=== PATIENT | female | born 1995 | race Caucasian/White ===

== ENCOUNTER 2020-01-07 18:02 | Emergency (ER) | payer OTHER, SELFPAY ==
--- NOTE | ~2020-01-07 | XR_ITS ---
EXAMINATION: XR chest 1V portable INDICATION: Cough and fever TECHNIQUE: Portable AP chest at 1833 hours COMPARISON: None available FINDINGS: The lungs are free of acute opacities. There is no pleural effusion or pneumothorax. The ca rdiomediastinal silhouette is normal. The visualized bones and soft tissues are unremarkable. IMPRESSION: 1. No acute cardiopulmonary abnormality. Reviewed, dictated and finalized at location A.
[2020-01-07 18:09] VITALS: BP 140/104; PULSE 90; RESP 20; TEMP 37.1; O2SAT 100
--- NOTE | 2020-01-07 18:19 | ECG_ITS ---
Measurements Intervals [place] Rate: 108 P: 54 [place]: 152 QRS: 91 QRSD: 87 T: -13 QT: 327 QTc: 440 Interpretive Statements SINUS TACHYCARDIA RIGHT AXIS DEVIATION ST-T WAVE ABNORMALITY IN ANTERSEPTAL LEADS- CONSIDER ISCHEMIA BASELINE WANDER- I, II, AVR ABNORMAL ECG Electronically Signed On 01-08-2020 7:45:58 CDT by Nakul Villalobos D.O.
[2020-01-07 19:15] LABS: Basophils Percent Auto 0.3 % (0.2-1.2); Eosinophils Percent Auto 0.5 % (0-4.4); Hematocrit 42.3 % (37.0-47.0); Hemoglobin 13.5 g/dL (12.0-15.0); Immature Granulocyte Absolute 0.02 K/mm3 (0.00-0.031); Immature Granulocyte Percent A 0.3 % (0-0.5); Lymphocytes Absolute Auto 1.55 K/mm3 (0.9-3.2); Lymphocytes Percent Auto 24.1 % (18.3-44.2); Mean Corpuscular HGB Conc 31.9 g/dl (32-36); Mean Corpuscular Hemoglobin 25.2 pg (26-34); Mean Corpuscular Volume 79.1 fl (80-100); Mean Platelet Volume 9.9 fl (7.4-10.4); Monocytes Absolute Auto 0.7 K/mm3 (0.1-0.6); Monocytes Percent Auto 10.1 % (2.6-8.5); Neutrophils Absolute Auto 4.2 K/mm3 (1.3-6.7); Neutrophils Percent Auto 64.7 % (45.5-73.1); Platelet Count Result 317 k/mm3 (150-375); Red Blood Count 5.35 M/mm3 (4.2-5.4); Red Cell Distribution Width 15.4 % (11.5-14.5); White Blood Count 6.4 K/mm3 (4.5-10.0)
[2020-01-07 19:25] LABS: INR 1.1; Prothrombin Time 13.6 Seconds (11.1-14.7)
[2020-01-07 19:26] LABS: Partial Thromboplastin Time 33.2 SECONDS (22.3-36.8)
[2020-01-07 19:28] LABS: Lactic Acid Reflex 0.9 mmol/L (0.7-2.1)
--- NOTE | 2020-01-07 19:28 | ED.FEVER ---
HPI - Fever General Chief Complaint: Fever <Jose Aleman PA-C - Last Filed: 01/07/20 19:56> Stated Complaint: Fever, cough, chest discomfort <Jose Aleman PA-C - Last Filed: 01/07/20 19:56> Time Seen by Provider: 01/07/20 18:11 <GLADYS Rashid Last Filed: 01/07/20 19:56> Source: patient and family <GLADYS Rashid Last Filed: 01/07/20 19:56> Mode of arrival: ambulatory <Jose Aleman PA-C - Last Filed: 01/07/20 19:56> Limitations: no limitations <Jose Aleman PA-C - Last Filed: 01/07/20 19:56> History of Present Illness HPI Narrative: Patient is a 24-year-old female who presents to emergency department for evaluation with family for fever chills cough runny nose congestion for the last week. Patient was placed on Bactrim by primary care but has continued to have cough. Patient on arrival notes she has had some loose stools but denies vomiting. Family notes subjective fever. Patient otherwise resting comfortably in the room upon arrival in no distress. Patient with history of autism <Jose Aleman PA-C - Last Filed: 01/07/20 19:56> Related Data Home Medications: Home Medications Medication Instructions Recorded Confirmed fluticasone propionate [Flonase INTRANASAL 08/31/19 Allergy Relief] <Jose Aleman PA-C - Last Filed: 01/07/20 19:56> Allergies/Adverse Reactions: Allergies Allergy/AdvReac Type Severity Reaction Status Date / Time No Known Allergies Allergy Verified 08/31/19 10:28 <Jose Aleman PA-C - Last Filed: 01/07/20 19:56> Review of Systems Review of Systems: All systems reviewed & are unremarkable except as noted in HPI and below <Jose Aleman PA-C - Last Filed: 01/07/20 19:56> [facility] Social History Social History: Social History Smoking status: Never smoker Alcohol intake: never Substance use: never <GLADYS Rashid Last Filed: 01/07/20 19:56> Exam Narrative: Exam Narrative: GENERAL: Well-appearing, well-nourished, and in no acute distress. HEAD: Normocephalic, atraumatic. EYES: PERRLA and EOMI. ENT: Nares clear, no rhinorrhea or epistaxis. Mucous membranes moist. Oropharynx with erythema and without tonsillar hypertrophy exudate or other lesions. Bilateral TMs pearly howell nonbulging. Uvula midline no trismus or drooling NECK: Supple. No adenopathy or masses. No carotid bruits or JVD CHEST: Clear to auscultation. No respiratory distress. No wheezes rales or rhonchi HEART: Regular rate and rhythm. No murmur heard. Normal peripheral pulses. ABDOMEN: Soft, nontender, nondistended EXTREMITIES: Normal range of motion. No edema. SKIN: Warm, dry, no rash. NEURO: No focal deficits. Alert and oriented x3. Cranial nerves II through XII grossly intact PSYCH: Normal mood and affect. <Jose Aleman PA-C - Last Filed: 01/07/20 19:56> Course FLOOR LAYER HELPER/PA Physician Supervision [id number] time with the patient at 2037. Discussed the case with Anshul Garcia, and will assume care, since Anshul went home. I saw the patient and her mother, and she feels fine, and will probably be discharged home for self-care. <Karen Verdugo MD - Last Filed: 01/07/20 22:12> Reevaluation(s) Reevaluation #1: [id number] with the patient and her mother at 2035. The patient has had fever at home and is on antibiotic. All of her tests are looking good, and she is feeling fine. Still waiting for the influenza swab to come back. The mom asked if, no source is found, she would change the antibiotic. I explained that it is probably viral, and might be the COVID, and no antibiotics will be helpful. <Karen Verdugo MD - Last Filed: 01/07/20 22:12> Date: 01/07/20 <Karen Verdugo MD - Last Filed: 01/07/20 22:12> Time: 20:37 <Karen Verdugo MD - Last Filed: 01/07/20 22:12> Vital Signs Vital signs: Vital Signs
[2020-01-07 19:34] LABS: Alanine Aminotransferase 12 U/L (4-35); Alkaline Phosphatase 89 U/L (38-126); Aspartate Amino Transferase 22 U/L (14-36); Bilirubin,Total 0.7 mg/dL (0.2-1.3); Blood Urea Nitrogen 15 mg/dL (7-17); Calcium 9.2 mg/dL (8.4-10.2); Carbon Dioxide 21 mmol/L (22-30); Chloride 99 mmol/L (98-107); Estimated CRCL calculation 104 ml/min; Estimated Glomerular Filt Rate > 60; Glucose 90 mg/dL (65-105); Potassium 3.4 mmol/L (3.4-5.0); Sodium 137 mmol/L (137-145)
[2020-01-07] MEDS: SODIUM CHLORIDE 0.9% IV 1,000 ML 999 ML IV CONT (19:35)
[2020-01-07 19:36] VITALS: BP 128/89; PULSE 120; RESP 20; O2SAT 99
[2020-01-07 19:53] LABS: CRP 0.7 mg/dL (<1.0)
[2020-01-07 20:24] LABS: Add Urine Microscopic? YES
[2020-01-07 20:25] LABS: Appearance Urine Clear (Clear); Blood Urine Negative (Negative); Color Urine Yellow (Yellow); Glucose Urine UA Negative (Negative); Ketones Urine 3+ mg/dL (Negative); Nitrate Urine Negative (Negative); Protein Urine 1+ mg/dL (Negative); Specific Grav Ur 1.032 (1.001-1.035)
[2020-01-07 20:26] LABS: Bilirubin Urine Negative (Negative); Leukocyte Esterase Ur Negative LEU/UL (Negative); Urobilinogen Urine 0.2 mg/dL (<2.0)
[2020-01-07 20:28] LABS: RBC Urine 0-2 /hpf (0-2)
[2020-01-07 20:29] LABS: Bacteria Urine None seen /hpf; Squamous Epithelial Cell Urine Few /hpf (Few); WBC Urine 0-3 /hpf (0-3)
== END 2020-01-07 21:07 | disposition home or self-care (01) ==
PROVIDERS: Emergency Medicine Emergency Medical Services; Emergency Provider Emergency Medicine
DX: J06.9 Acute upper respiratory infection, unspecified (principal); R00.0 Tachycardia, unspecified; R94.31 Abnormal electrocardiogram [ECG] [EKG]
CPT/HCPCS: 36415; 71045; 80053; 81001; 83605; 85025; 85610; 85730; 86140; 87040; 87081; 87804; 87880; 93005; 96365; 96366; 99284; J0131; J7030

== ENCOUNTER 2020-04-05 17:18 | Emergency (ER) | payer OTHER, SELFPAY ==
[2020-04-05 17:22] VITALS: BP 135/83; PULSE 107; RESP 18; TEMP 36.6; O2SAT 100
--- NOTE | 2020-04-05 17:25 | ED.GENADULT ---
HPI - General Adult General Chief complaint: Ear Stated complaint: sore throat, left ear pain Time Seen by Provider: 04/05/20 17:25 Source: patient Mode of arrival: ambulatory Limitations: no limitations and physical limitation (History of autism) History of Present Illness HPI narrative: 24-year-old female patient presents to the [facility] with complaints of left ear pain and sore throat pain for the past 3 days. Denies any fevers. Denies any loss of taste or smell. Denies any chest pain, shortness of breath, abdominal pain, nausea, vomiting or diarrhea. Patient states that she has been using her Flonase at home as well as taking some [id number] sinus medication for her symptoms. Patient states that she is concerned about possibly having strep or an ear infection. Denies any recent swimming. Related Data Home Medications Medication Instructions Recorded Confirmed fluticasone propionate [Flonase INTRANASAL 08/31/19 Allergy Relief] Allergies Allergy/AdvReac Type Severity Reaction Status Date / Time No Known Allergies Allergy Verified 08/31/19 10:28 Review of Systems Review of Systems: Narrative: CONSTITUTIONAL: Denies fever, chills, or sweats. EYES: Denies visual changes, redness, or discharge. ENT: Denies rhinorrhea, congestion, positive sore throat, positive left otalgia. CARDIOVASCULAR: Denies chest pain, palpitations, or edema. RESPIRATORY: Denies cough or dyspnea. GASTROINTESTINAL: Denies abdominal pain, nausea, vomiting, or diarrhea. GENITOURINARY: Denies dysuria or hematuria. SKIN: Denies rash or itching. MUSCULOSKELETAL: Denies back pain, joint pain, or myalgia. NEUROLOGIC: Denies headache, numbness, or weakness. PSYCHIATRIC: Denies anxiety or depression. PMFSH Social History Social History Smoking status: Never smoker Alcohol intake: never Substance use: never Gender identity (if verbalized by the patient): Female Comments At the time of my signature I agree with nursing past medical history, surgical, social, and family history. There is no relevant family history pertinent to the presenting complaint. Exam Narrative: Exam Narrative: GENERAL: Well-appearing, well-nourished, and in no acute distress. HEAD: Normocephalic, atraumatic. No tenderness noted to frontal maxillary sinuses on palpation EYES: PERRLA and EOMI. ENT: Nares clear, no rhinorrhea or epistaxis. Mucous membranes moist. Posterior pharynx with 2+ tonsil enlargement, slight erythema. No exudates or lesions present. Bilateral TMs are clear with no erythema or foreign bodies to the canal. NECK: Supple. No lymphadenopathy CHEST: Clear to auscultation. No respiratory distress. HEART: Regular rate and rhythm. No murmur heard. Normal peripheral pulses. ABDOMEN: Soft, nontender, nondistended, normal active bowel sounds. EXTREMITIES: Normal range of motion. No edema. SKIN: Warm, dry, no rash. NEURO: No focal deficits. Alert and oriented x3. Course Reevaluation(s) Reevaluation #1: Reevaluated patient and mother. Discussed with them that patient strep test is negative today. Discussed them I went ahead and prescribe patient some Claritin to help with the sinus drainage symptoms that she needs to continue doing her Flonase and she needs to follow-up with her primary doctor in the next 5 to 7 days as needed. They verbalized understanding of this denies any other questions or concerns at this time. Date: 04/05/20 Time: 18:05 Vital Signs Vital signs: Vital Signs Temperature 36.6 C 04/05/20 17:22 Pulse Rate 107 H 04/05/20 17:22 Respiratory Rate 18 04/05/20 17:22 Blood Pressure 135/83 04/05/20 17:22 Pulse Oximetry 100 04/05/20 17:22 Temperature 36.6 C 04/05/20 17:22 Pulse Rate 107 H 04/05/20 17:22 Respiratory Rate 18 04/05/20 17:22 Blood Pressure 135/83 04/05/20 17:22 Pulse Oximetry 100 04/05/20 17:22 Vital signs reviewed. The patien
== END 2020-04-05 18:13 | disposition home or self-care (01) ==
PROVIDERS: Emergency Provider Nurse Practitioner Family
DX: J02.9 Acute pharyngitis, unspecified (principal); F84.0 Autistic disorder; R03.0 Elevated blood-pressure reading, without diagnosis of hypertension
CPT/HCPCS: 87880; 99283

== ENCOUNTER 2020-08-10 11:02 | Emergency (ER) | payer OTHER, SELFPAY ==
--- NOTE | ~2020-08-10 | XR_ITS ---
EXAMINATION: XR chest 1V portable EXAM DATE: 08/10/2020 11:55 INDICATION: Cough, chest pain, symptoms one week. TECHNIQUE: Portable AP frontal chest x-ray was obtained. Comparison is made to prior examination from 01/07/2020. FINDINGS: Some hyperinflation. The lungs are clear. There are no pleural effusions. The cardiomedia stinal silhouette is within normal limits. There is no pneumothorax suspected. The bones and soft t issues are unremarkable. IMPRESSION: Hyperinflation unchanged. Reviewed, dictated and finalized at location A. ER BOILERMAKER IMPRESSION: Hyperinflation unchanged.
[2020-08-10 11:11] VITALS: BP 135/95; PULSE 124; RESP 18; TEMP 36.3; O2SAT 99
--- NOTE | 2020-08-10 11:40 | ED.GENADULT ---
HPI - General Adult General Chief complaint: Chest Pain Stated complaint: vomiting, congestion, head/nose pain Time Seen by Provider: 08/10/20 11:14 Source: patient Mode of arrival: ambulatory Limitations: no limitations History of Present Illness HPI narrative: Patient is a 24-year-old female who presents with congestion rhinorrhea headache nonproductive cough that began this morning denies sick contacts has not taken anything for her symptoms presents per private vehicle in no distress does note feeling anxious with history of anxiety patient denies vomiting diarrhea chest pain or shortness of breath and on arrival is in no distress Related Data Home Medications Medication Instructions Recorded Confirmed fluticasone propionate [Flonase INTRANASAL 08/31/19 Allergy Relief] Allergies Allergy/AdvReac Type Severity Reaction Status Date / Time No Known Allergies Allergy Verified 08/10/20 11:14 Review of Systems Review of Systems: All systems reviewed & are unremarkable except as noted in HPI and below PMFSH Social History Social History Smoking status: Never smoker Alcohol intake: never Substance use: never Gender identity (if verbalized by the patient): Female Exam Narrative: Exam Narrative: GENERAL: Well-appearing, well-nourished, and in no acute distress. HEAD: Normocephalic, atraumatic. EYES: PERRLA and EOMI. ENT: Nares clear, no rhinorrhea or epistaxis. Mucous membranes moist. CHEST: Clear to auscultation. No respiratory distress. No wheezes rales or rhonchi HEART: Tachycardic rate and regular rhythm. No murmur heard. Normal peripheral pulses. EXTREMITIES: Normal range of motion. No edema. SKIN: Warm, dry, no rash. NEURO: No focal deficits. Alert and oriented x3. PSYCH: Normal mood and affect. Course Vital Signs Vital signs: Vital Signs Temperature 97.4 F L 08/10/20 11:11 Pulse Rate 124 H 08/10/20 11:11 Respiratory Rate 18 08/10/20 11:11 Blood Pressure 135/95 H 08/10/20 11:11 Pulse Oximetry 99 08/10/20 11:11 Temperature 97.4 F L 08/10/20 11:11 Pulse Rate 124 H 08/10/20 11:11 Respiratory Rate 18 08/10/20 11:11 Blood Pressure 135/95 H 08/10/20 11:11 Pulse Oximetry 99 08/10/20 11:11 Medical Decision Making Vital Signs Vital Signs: Vital Signs Temperature 97.4 F L 08/10/20 11:11 Pulse Rate 124 H 08/10/20 11:11 Respiratory Rate 18 08/10/20 11:11 Blood Pressure 135/95 H 08/10/20 11:11 Pulse Oximetry 99 08/10/20 11:11 Temperature 97.4 F L 08/10/20 11:11 Pulse Rate 124 H 08/10/20 11:11 Respiratory Rate 18 08/10/20 11:11 Blood Pressure 135/95 H 08/10/20 11:11 Pulse Oximetry 99 08/10/20 11:11 Lab Data Labs: Lab Results 08/10/20 Range/Units 11:24 SARS-CoV-2 RNA (RT-PCR) Pending Discharge Plan Discharge Prescriptions: No Action loratadine [Claritin] 10 mg tablet 10 mg PO DAILY Qty: 30 RF: 0 fluticasone propionate [Flonase Allergy Relief] 50 mcg/actuation [place],Suspension INTRANASAL RF: 0
--- NOTE | 2020-08-10 11:57 | ED.CHESTPAIN ---
HPI - Chest Pain General Chief Complaint: Chest Pain Stated Complaint: vomiting, congestion, head/nose pain Time Seen by Provider: 08/10/20 11:14 Source: patient Mode of arrival: ambulatory Limitations: no limitations History of Present Illness HPI narrative: Patient is a 24-year-old female who presents with congestion rhinorrhea headache productive cough that began this morning denies shortness of breath diarrhea vomiting or tobacco abuse or history of lung disease denies sick contacts. . Patient is not been seen for this complaint nor she taken anything for her symptoms. On arrival patient in the room in no distress does not appear uncomfortable toxic or sick Related Data Home Medications Medication Instructions Recorded Confirmed fluticasone propionate [Flonase INTRANASAL 08/31/19 Allergy Relief] Allergies Allergy/AdvReac Type Severity Reaction Status Date / Time No Known Allergies Allergy Verified 08/10/20 11:14 Review of Systems Review of Systems: All systems reviewed & are unremarkable except as noted in HPI and below PMFSH Social History Social History Smoking status: Never smoker Alcohol intake: never Substance use: never Gender identity (if verbalized by the patient): Female Exam Narrative: Exam Narrative: GENERAL: Well-appearing, well-nourished, and in no acute distress. HEAD: Normocephalic, atraumatic. EYES: PERRLA and EOMI. ENT: Nares clear, no rhinorrhea or epistaxis. Mucous membranes moist. CHEST: Clear to auscultation. No respiratory distress. No wheezes rales or rhonchi HEART: Tachycardic rate and regular rhythm. No murmur heard. Normal peripheral pulses. ABDOMEN: Soft, nontender, nondistended EXTREMITIES: Normal range of motion. No edema. SKIN: Warm, dry, no rash. NEURO: No focal deficits. Alert and oriented x3. PSYCH: Normal mood and affect. Course Course Emergency Course: Patient in the room aware of case findings treatment plan diagnosis will be discharged home Covid testing pending with no pneumonia seen on exam afebrile nontoxic-appearing no distress felt appropriate for discharge home agreeing to return if symptoms worsen Vital Signs Vital signs: Vital Signs Temperature 97.4 F L 08/10/20 11:11 Pulse Rate 124 H 08/10/20 11:11 Respiratory Rate 18 08/10/20 11:11 Blood Pressure 135/95 H 08/10/20 11:11 Pulse Oximetry 99 08/10/20 11:11 Temperature 97.4 F L 08/10/20 11:11 Pulse Rate 124 H 08/10/20 11:11 Respiratory Rate 18 08/10/20 11:11 Blood Pressure 135/95 H 08/10/20 11:11 Pulse Oximetry 99 08/10/20 11:11 MDM - Chest Pain MDM Narrative Medical decision making narrative: ABCs stable at this time patient is slightly anxious likely accounting for tachycardia no pneumonia or other concerning findings on exam will be discharged home with self quarantine will use her primary care to get her results provided with reasons to return will be treated symptomatically Lab Data Labs: Lab Results 08/10/20 Range/Units 11:24 SARS-CoV-2 RNA (RT-PCR) Pending Discharge Plan Discharge Clinical Impression: Acute upper respiratory infection Patient Disposition: Home, Self-Care Condition: Stable Instructions: Antibiotic Form, COVID-19 (Coronavirus Disease 2019) (ED) Additional Instructions: Follow up with your primary care provider within 1 to 2 days to set up for reevaluation and get your COVID-19 results. Go to ER for shortness of breath, difficulty breathing, chest pain, fever/chills, weakness, nauseau/vomitting, etc. or any other concerns. Stay well-hydrated Self quarantine until you have received your COVID-19 results and been advised otherwise by primary care Take any prescribed medications as directed. Follow patient education sheets If you do not have a drug allergy to tylenol or motrin and can tolerate it then take tylenol or motrin as needed for discomfort/pain
[2020-08-10 13:15] VITALS: BP 135/82; PULSE 100; RESP 16; O2SAT 100
[2020-08-10 21:00] LABS: SARS-CoV-2 RNA PCR Negative
== END 2020-08-10 13:15 | disposition home or self-care (01) ==
PROVIDERS: Emergency Medicine Emergency Medical Services; Emergency Provider Emergency Medicine
DX: J06.9 Acute upper respiratory infection, unspecified (principal); Z20.828 Contact with and (suspected) exposure to other viral communicable diseases
CPT/HCPCS: 71045; 87635; 99283; C9803; U0003

== ENCOUNTER 2021-02-03 14:53 | Emergency (ER) | payer OTHER, SELFPAY ==
[2021-02-03 15:03] VITALS: BP 148/103; PULSE 100; RESP 18; TEMP 36.6; O2SAT 100
--- NOTE | 2021-02-03 15:57 | ED.EAR ---
HPI - Ear Problem General Chief complaint: Ear Stated complaint: ear has been draining Time Seen by Provider: 02/03/21 15:56 Source: patient Mode of arrival: ambulatory Limitations: no limitations History of Present Illness HPI Narrative: This is a 25-year-old female that presents the emergency department for left ear discharge noted over the last couple of days. Associated with some pain in the ear and nasal congestion. Denies fever cough. Related Data Allergies Allergy/AdvReac Type Severity Reaction Status Date / Time No Known Allergies Allergy Verified 02/03/21 15:02 Review of Systems Review of Systems: Narrative: CONSTITUTIONAL: Denies fever ENT: Reports congestion and otalgia. Denies sore throat All systems reviewed & are unremarkable except as noted in HPI and below PMFSH Social History Social History Smoking status: Never smoker Alcohol intake: never Substance use: never Gender identity (if verbalized by the patient): Female Exam Narrative: Exam Narrative: GENERAL: Well-appearing, well-nourished, and in no acute distress. HEAD: Normocephalic, atraumatic. EYES: EOMI. ENT: Nares clear, no rhinorrhea or epistaxis. Mucous membranes moist. Oropharynx without tonsillar hypertrophy exudate or other lesions. Bilateral external auditory canals are normal. Bilateral TMs pearly howell non-bulging NECK: Supple. No adenopathy or masses. CHEST: Clear to auscultation. No respiratory distress. No wheezes rales or rhonchi HEART: Regular rate and rhythm. No murmur heard. Normal peripheral pulses. EXTREMITIES: Normal range of motion. No edema. SKIN: Warm, dry, no rash. NEURO: No focal deficits. Alert and oriented x3. PSYCH: Normal mood and affect Course Vital Signs Vital signs: Vital Signs Temperature 97.9 F 02/03/21 15:03 Pulse Rate 100 02/03/21 15:03 Respiratory Rate 18 02/03/21 15:03 Blood Pressure 148/103 H 02/03/21 15:03 Pulse Oximetry 100 02/03/21 15:03 Temperature 97.9 F 02/03/21 15:03 Pulse Rate 100 02/03/21 15:03 Respiratory Rate 18 02/03/21 15:03 Blood Pressure 148/103 H 02/03/21 15:03 Pulse Oximetry 100 02/03/21 15:03 Medical Decision Making MDM Narrative Medical decision making narrative: Patient presents to the emergency department for left ear discomfort and drainage from the left ear. She is afebrile and nontoxic-appearing. Bilateral external auditory canals and TMs are normal. She was instructed to continue her allergy medications and take [id number] pain medication as needed. She is to follow-up with her primary care doctor. She was given warnings to return to the ER Vital Signs Vital Signs: Vital Signs Temperature 97.9 F 02/03/21 15:03 Pulse Rate 100 02/03/21 15:03 Respiratory Rate 18 02/03/21 15:03 Blood Pressure 148/103 H 02/03/21 15:03 Pulse Oximetry 100 02/03/21 15:03 Temperature 97.9 F 02/03/21 15:03 Pulse Rate 100 02/03/21 15:03 Respiratory Rate 18 02/03/21 15:03 Blood Pressure 148/103 H 02/03/21 15:03 Pulse Oximetry 100 02/03/21 15:03 Critical Care Time Critical Care Time Critical Care Time: No Discharge Plan Discharge Clinical Impression: Otalgia of left ear Patient Disposition: Home, Self-Care Condition: Stable Additional Instructions: Return to the emergency department if you experience fever, redness and swelling of your ear, worsening pain, or any other symptoms that are concerning to you Continue your home medications as prescribed. Tylenol or ibuprofen as needed for discomfort Follow-up with your primary care doctor Prescriptions: No Action loratadine [Claritin] 10 mg tablet 10 mg PO DAILY Qty: 30 RF: 0 fluticasone propionate [Flonase Allergy Relief] 50 mcg/actuation spray,suspension 2 spray intranasal DAILY Qty: 9.9 RF: 0 Follow-up/Referrals: PHYSICIAN,FOREIGN TRADE TEACHER [Primary Care Provider] -
== END 2021-02-03 16:25 | disposition home or self-care (01) ==
PROVIDERS: Emergency Provider Emergency Medicine
DX: H92.02 Otalgia, left ear (principal)
CPT/HCPCS: 99281

== ENCOUNTER 2021-03-17 11:21 | Emergency (ER) | payer OTHER, SELFPAY ==
[2021-03-17 11:31] VITALS: BP 133/91; PULSE 92; RESP 16; TEMP 36.6; O2SAT 99
[2021-03-17 11:51] LABS: Add Urine Microscopic? YES; Appearance Urine Cloudy (Clear); Bacteria Urine Trace /hpf; Bilirubin Urine Negative (Negative); Blood Urine Negative (Negative); Color Urine Yellow (Yellow); Glucose Urine UA Negative (Negative); Ketones Urine Negative (Negative); Leukocyte Esterase Ur Negative LEU/UL (Negative); Mucus Urine Heavy /lpf; Nitrate Urine Negative (Negative); Protein Urine 1+ mg/dL (Negative); RBC Urine 0-2 /hpf (0-2); Specific Grav Ur 1.026 (1.001-1.035); Squamous Epithelial Cell Urine Many /hpf (Few); WBC Urine 0-3 /hpf
--- NOTE | 2021-03-17 13:15 | ED.FEMALEGU ---
HPI - Female Genitourinary General Chief complaint: Urogenital-Female Stated complaint: UTI Time Seen by Provider: 03/17/21 12:34 Source: patient Mode of arrival: ambulatory Limitations: no limitations History of Present Illness HPI Narrative: This is a 25-year-old female that presents the emergency department for urinary discomfort x2 days. Reports burning and frequency. Denies fever, abdominal pain, vomiting, hematuria, or abdominal lesions or discharge. Related Data Allergies Allergy/AdvReac Type Severity Reaction Status Date / Time No Known Allergies Allergy Verified 02/03/21 15:02 Review of Systems Review of Systems: Narrative: CONSTITUTIONAL: Denies fever GASTROINTESTINAL: Denies abdominal pain, nausea, vomiting GENITOURINARY: Reports dysuria. Denies hematuria. SKIN: Denies rash or itching. All systems reviewed & are unremarkable except as noted in HPI and below PMFSH Social History Social History Smoking status: Never smoker Alcohol intake: never Substance use: never Gender identity (if verbalized by the patient): Female Exam Narrative: Exam Narrative: GENERAL: Well-appearing, well-nourished, and in no acute distress. HEAD: Normocephalic, atraumatic. EYES: EOMI. CHEST: Clear to auscultation. No respiratory distress. No wheezes rales or rhonchi HEART: Regular rate and rhythm. No murmur heard. Normal peripheral pulses. ABDOMEN: Soft, nontender, nondistended, normal active bowel sounds. EXTREMITIES: Normal range of motion. No edema. SKIN: Warm, dry, no rash. NEURO: No focal deficits. Alert and oriented x3. PSYCH: Normal mood and affect PELVIC: Mild vulvovaginal irritation and white discharge. No CMT Course Vital Signs Vital signs: Vital Signs Temperature 97.8 F 03/17/21 11:31 Pulse Rate 92 03/17/21 11:31 Respiratory Rate 16 03/17/21 11:31 Blood Pressure 133/91 H 03/17/21 11:31 Pulse Oximetry 99 03/17/21 11:31 Temperature 97.5 F L 03/17/21 13:59 Pulse Rate 79 03/17/21 13:59 Respiratory Rate 18 03/17/21 13:59 Blood Pressure 138/98 H 03/17/21 13:59 Pulse Oximetry 100 03/17/21 13:59 MDM - Female Genitourinary MDM Narrative Medical decision making narrative: Patient presents emergency department for vaginal irritation and dysuria. She is afebrile and nontoxic-appearing. Denies any fever, abdominal pain, or vomiting. UA is without evidence of infection. Trichomonas is negative. Chlamydia, gonorrhea and genital culture were sent. Bedside test is negative. Patient does not report any concern for STDs. Would like to follow-up for results. She did have some evidence of yeast infection on exam so will be treated for this. She is to follow-up with her primary doctor. She was given warnings to return to the ER Lab Data Attestation: I reviewed the patient's lab results. Labs: Lab Results 03/17/21 03/17/21 03/17/21 Range/Units 11:36 14:23 14:23 Urine Color Yellow (Yellow) Urine Appearance Cloudy H (Clear) Urine pH 6.0 (5.0-9.0) Ur Specific [place] 1.026 (1.001-1.035) Urine Protein 1+ H (Negative) mg/dL Urine Glucose (UA) Negative (Negative) mg/dL Urine Ketones Negative (Negative) mg/dL Ur Blood (Man) Negative (Negative) Urine Nitrate Negative (Negative) Urine Bilirubin Negative (Negative) Urine Urobilinogen 2.0 H (<2.0) mg/dL Leukocyte Esterase Rfl Negative (Negative) GRIFFIN/UL Urine RBC 0-2 (0-2) /hpf Urine WBC 0-3 /hpf Ur Squamous Epith Cells Many H (Few) /hpf Urine Bacteria Trace /hpf Urine Mucus Heavy H /lpf C.trachomatis RNA (TMA) Pending N.gonorrhoeae RNA (TMA) Pending Trichomonas Direct ID Negative (Negative) UCG Bedside Result Negative Reference Range: Negative Critical Care Time Critical Care Time Critical Ca
[2021-03-17 13:59] VITALS: BP 138/98; PULSE 79; RESP 18; TEMP 36.4; O2SAT 100
[2021-03-17 16:30] VITALS: BP 156/91; PULSE 80; RESP 18; TEMP 36.5; O2SAT 99
[2021-03-17] MEDS: FLUCONAZOLE 150 MG TABLET PO (16:37)
== END 2021-03-17 16:30 | disposition home or self-care (01) ==
PROVIDERS: Physician Assistant; Emergency Provider Emergency Medicine
DX: B37.3 Candidiasis of vulva and vagina (principal)
CPT/HCPCS: 81001; 81025; 87070; 87491; 87591; 87808; 99284; A9270

== ENCOUNTER 2021-05-24 11:53 | Emergency (ER) | payer OTHER, SELFPAY ==
--- NOTE | ~2021-05-24 | XR_ITS ---
EXAMINATION: XR chest 1V portable INDICATION: Weakness TECHNIQUE: Portable AP chest at 1232 hours COMPARISON: 08/10/2020 FINDINGS: The lungs are free of acute opacities. There is no pleural effusion or pneumothorax. The ca rdiomediastinal silhouette is normal. The visualized osseous structures are unremarkable. IMPRESSION: 1. No acute cardiopulmonary abnormality. Reviewed, dictated and finalized at location A.
[2021-05-24 12:07] VITALS: BP 149/90; PULSE 133; RESP 16; TEMP 36.8; O2SAT 100
--- NOTE | 2021-05-24 12:24 | ECG_ITS ---
Measurements Intervals [place] Rate: 124 P: 59 [place]: 159 QRS: 99 QRSD: 82 T: -6 QT: 336 QTc: 484 Interpretive Statements SINUS TACHYCARDIA RIGHT AXIS DEVIATION BORDERLINE ST-T WAVE ABNORMALITY- ANTEROLAT/INF LEADS BASELINE ARTIFACT- I, II, III, AVR, AVL ABNORMAL ECG Electronically Signed On 05-24-2021 13:02:46 CDT by Nakul Villalobos D.O.
--- NOTE | 2021-05-24 12:49 | ED.GENADULT ---
HPI - General Adult General Chief complaint: Unspecified Stated complaint: Vomiting/iarrhea/Ear Pain Time Seen by Provider: 05/24/21 12:04 Source: patient and RN notes reviewed Mode of arrival: ambulatory Limitations: no limitations History of Present Illness HPI narrative: This is a 25 year old female who presents for evaluation of URI symptoms with vomiting and diarrhea. Patient reports 1 week ago she developed what seemed to be a sinus infection. She reports bilateral ear pain, sinus congestion, nasal discharge with green sputum. She also reports mild cough but denies chest pain or shortness of breath. She also reports nausea, vomiting and diarrhea. She has been taking flonase and claritin for her symptoms. Related Data Allergies Allergy/AdvReac Type Severity Reaction Status Date / Time No Known Allergies Allergy Verified 05/24/21 12:12 Review of Systems Review of Systems: All systems reviewed & are unremarkable except as noted in HPI and below Constitutional: Constitutional: Denies chills and Denies fever(s) Eyes: Eyes: Denies blurry vision ENT: Reports otalgia, Denies headache(s), Reports nasal congestion, Reports nasal discharge, Reports sinus pressure and Denies sore throat Cardiovascular: Cardiovascular: Denies chest pain at rest Respiratory: Respiratory: Reports cough and Denies dyspnea Gastrointestinal: Gastrointestinal: Denies abdominal pain, Reports diarrhea, Reports nausea and Reports vomiting PMFSH Past Medical History Medical History (Updated 05/24/21 @ 15:22 by Ashley Ibarra MD) Autism Surgical History Surgical History (Updated 05/24/21 @ 12:49 by Ashley Ibarra MD) No pertinent past surgical history Social History Social History Smoking status: Never smoker Alcohol intake: never Substance use: never Gender identity (if verbalized by the patient): Female Exam Narrative: GENERAL: Well-appearing, well-nourished, and in no acute distress. HEAD: Normocephalic, atraumatic EYES: PERRLA and EOMI, conjunctiva clear without discharge EARS: TM's clear bilaterally without erythema or dullness NOSE: Nares clear, no rhinorrhea or epistaxis THROAT:Mucous membranes moist, Oropharynx normal without erythema, exudate, peritonsillar swelling or fluctuance NECK: Supple, without lymphadenopathy or mass RESPIRATORY: No respiratory distress, Airway patent, Respirations non-labored, Clear to auscultation without rales, rhonchi or wheeze HEART: Regular rate and rhythm. No murmur heard. Normal peripheral pulses. ABDOMEN: Soft, nontender, nondistended, normal active bowel sounds. No masses. No rebound or guarding, No organomegaly. EXTREMITIES: No edema, normal strength with full range of motion. SKIN: Warm, dry, normal color without rash NEURO: Alert and oriented x3. CN 2-12 grossly intact. No focal deficits. PSYCH: Normal mood and affect. Course Reevaluation(s) Reevaluation #1: PAtient and mother have no complaints. I D iscussed she was found to be positive for covid. She was also given potassium supplementation . She has no more vomiting. They deny having any other questions or concerns. Date: 05/24/21 Time: 15:11 Vital Signs Vital signs: Vital Signs Temperature 98.2 F 05/24/21 12:07 Pulse Rate 133 H 05/24/21 12:07 Respiratory Rate 16 05/24/21 12:07 Blood Pressure 149/90 H 05/24/21 12:07 Pulse Oximetry 100 05/24/21 12:07 Temperature 98.2 F 05/24/21 12:07 Pulse Rate 94 05/24/21 14:33 Respiratory Rate 18 05/24/21 14:33 Blood Pressure 147/98 H 05/24/21 14:33 Pulse Oximetry 100 05/24/21 14:33 Medical Decision Making Vital Signs Vital Signs: Vital Signs Temperature 98.2 F 05/24/21 12:07 Pulse Rate 133 H 05/24/21 12:07 Respiratory Rate 16 05/24/21 12:07 Blood Pressure 149/90 H 05/24/21 12:07 Pulse Oximetry 100 05/24/21 12:07 Temperature 98.2 F
[2021-05-24] MEDS: LACTATED RINGERS 1,000 ML 999 ML IV CONT (13:01)
[2021-05-24] MEDS: ONDANSETRON INJ 4 MG/2 ML VIAL IV PUSH (13:01)
[2021-05-24 13:11] LABS: Add Urine Microscopic? YES; Appearance Urine Clear (Clear); Bilirubin Urine Negative (Negative); Blood Urine 3+ (Negative); Color Urine Yellow (Yellow); Glucose Urine UA Negative (Negative); Ketones Urine 2+ mg/dL (Negative); Leukocyte Esterase Ur Negative LEU/UL (Negative); Mucus Urine Heavy /lpf; Nitrate Urine Negative (Negative); Protein Urine 3+ mg/dL (Negative); RBC Urine >75 /hpf (0-2); Squamous Epithelial Cell Urine Occasional /hpf (Few); Urobilinogen Urine Negative mg/dL (<2.0)
[2021-05-24 13:26] LABS: Hemoglobin 12.4 g/dL (12.0-15.0); Immature Granulocyte Absolute 0.01 K/mm3 (0.00-0.031); Immature Granulocyte Percent A 0.2 % (0-0.5); Lymphocytes Absolute Auto 1.29 K/mm3 (0.9-3.2); Lymphocytes Percent Auto 26.4 % (18.3-44.2); Mean Corpuscular Hemoglobin 22.7 pg (26-34); Mean Corpuscular Volume 73.1 fl (80-100); Mean Platelet Volume 9.2 fl (7.4-10.4); Monocytes Absolute Auto 0.4 K/mm3 (0.1-0.6); Monocytes Percent Auto 8.8 % (2.6-8.5); Neutrophils Absolute Auto 3.2 K/mm3 (1.3-6.7); Neutrophils Percent Auto 64.6 % (45.5-73.1); Platelet Count Result 250 k/mm3 (150-375); Red Blood Count 5.47 M/mm3 (4.2-5.4); White Blood Count 4.9 K/mm3 (4.5-10.0)
[2021-05-24 13:37] LABS: Lactic Acid Reflex 0.9 mmol/L (0.7-2.1)
[2021-05-24 13:40] LABS: Alanine Aminotransferase 44 U/L (4-35); Albumin Level 4.8 g/dL (3.5-5.1); Alkaline Phosphatase 65 U/L (38-126); Anion Gap 18 mmol/L (8-16); Aspartate Amino Transferase 39 U/L (14-36); Bilirubin,Total 0.4 mg/dL (0.2-1.3); Blood Urea Nitrogen 11 mg/dL (7-17); Calcium 9.1 mg/dL (8.4-10.2); Carbon Dioxide 24 mmol/L (22-30); Chloride 96 mmol/L (98-107); Estimated CRCL calculation 120 ml/min; Estimated Glomerular Filt Rate > 60; Glucose 106 mg/dL (65-110); Lipase 45 U/L (23-300); Potassium 2.9 mmol/L (3.4-5.0); Sodium 138 mmol/L (137-145)
[2021-05-24] MEDS: POTASSIUM CHLORIDE 20 MEQ TABLET 40 MEQ PO (13:57)
[2021-05-24 14:33] VITALS: BP 147/98; PULSE 94; RESP 18; O2SAT 100
[2021-05-24 14:49] LABS: EDCOVIDSCREEN Positive (Negative)
== END 2021-05-24 15:38 | disposition home or self-care (01) ==
PROVIDERS: Emergency Provider General Practice
DX: U07.1 COVID-19 (principal); E87.6 Hypokalemia; F84.0 Autistic disorder; R00.0 Tachycardia, unspecified; R94.31 Abnormal electrocardiogram [ECG] [EKG]
CPT/HCPCS: 36415; 71045; 80053; 81001; 81025; 83605; 83690; 83735; 85025; 87086; 87088; 87426; 93005; 96361; 96374; 99284; A9270; C9803; J2405; J7120